=== PATIENT | female | born 1985 | race Caucasian/White ===

== ENCOUNTER 2019-07-05 16:13 | Emergency (ER) | payer SELFPAY ==
[~2019-07-05] VITALS: Ht 170.1 cm; Wt 61.2 kg
[2019-07-05] MEDS ORDERED: NORCO 5-325 TA1 EACH PO (20:01)
== END 2019-07-05 20:18 | disposition home or self-care (01) ==
LOC: ED 16:13
DX: S92.422A Displaced fracture of distal phalanx of left great toe, initial encounter for closed fracture (principal); S92.515A Nondisplaced fracture of proximal phalanx of left lesser toe(s), initial encounter for closed fracture; W10.8XXA Fall (on) (from) other stairs and steps, initial encounter; Y93.89 Activity, other specified; Y92.89 Other specified places as the place of occurrence of the external cause; Y99.8 Other external cause status